=== PATIENT | male | born 1935 | race Caucasian/White ===

== ENCOUNTER 2017-07-21 13:52 | Emergency (ER) | payer OTHER, MEDICARE ==
[~2017-07-21] VITALS: Ht 175.3 cm; Wt 89.0 kg
[~2017-07-21 13:52] MED LIST: ACTOS30 MG PO; ADLT ASA LOW81 MG PO; CEPHALEXIN500 MG OR; DIOVAN HCT320 MG/25 PO; DIOVAN320 MG PO; FE GLUCONATE325 MG OR; FISH OIL600 MG OR; FOLIC ACID1 MG PO; GABAPENTIN100 MG PO; GLIPIZIDE5 MG PO; HYDROCHLORO25 MG/TAB PO; HYDROCHLOROT25 MG PO; HYDROCO/APAP1 TA9 PO; LOPRESSOR 550 MG/TAB PO; LORTAB5 PO; METOPROL TAR25 MG PO; METOPROL TAR50 MG PO; NORCO1 TA1 PO; NORVASC10 M1 PO; NORVASC5 MG PO; OMEPRAZOLE20 MG PO; PLOGLITAZONE PO; PYRIDOXINE HCL50 MG PO; SIMVASTATIN20 MG PO; SIMVASTATIN40 MG PO; TERAZOSIN1 MG PO; TET/DIP TOX1 ML IM
[2017-07-21 14:08] VITALS: BP 157/78
== END 2017-07-21 14:59 | disposition left against medical advice (07) | DRG 951 ==
LOC: ED 13:52 → LWOBS 14:58
DX: Z91.19 Patient's noncompliance with other medical treatment and regimen (principal)

== ENCOUNTER 2019-12-09 10:54 | Inpatient (IN) | payer OTHER, MEDICARE ==
[~2019-12-09] VITALS: Ht 175.3 cm; Wt 80.0 kg
--- NOTE | 2019-12-09 11:07 | NUR ---
PT TO ROOM [facility] WHEELCHAIR, SON AT SIDE
--- NOTE | 2019-12-09 11:31 | NUR ---
WHEN ASKED TO URINATE BEFORE BLADDER SCSAN, PT SCREAMED AT STAFF STATING I HAVENT PEED IN 4 DAYS, AND I AM NOT EVEN GOING TO TRY. WHEN I WALKED OUT OF DOOR AND CLOSED THE DOOR, PT STARTED YELLING I CANT HAVE THE DOOR CLOSED, I TOLD HIM WE NEEDED TO FOR HIPPA, HE YELLED, YOU ARENT GOING TO CLOSE THE DOOR OR I WILL GO CRAZY. CHARGE NURSE NOTIFIED.
--- NOTE | 2019-12-09 11:36 | NUR ---
PT STATING ONCE AGAIN HE DOESNT WANT A JAIME.
--- NOTE | 2019-12-09 11:53 | NUR ---
UNSUCCESSFUL ATTEMPT AT IV, CHARGE NURSE NOTIFIED.
[2019-12-09 12:11] LABS: HEMATOCRIT 35.3 % (39.0-50.0); HEMOGLOBIN 11.4 g/dl (14.0-18.0); IMMATURE GRANULOCYTES 0.5 % (0.0-5.0); MEAN CELL VOLUME 86.9 fL CALC (80.0-100.0); MEAN CORPUSCULAR HGB 28.1 pG CALC (26.0-32.0); MEAN CORPUSCULAR HGB CONC 32.3 g/dL CAL (32.0-36.0); NEUT# 14.55 thou/uL (1.82-7.42); RED BLOOD COUNT 4.06 mill/uL (4.70-6.10); RED CELL DISTRI WIDTH 18.5 % (11.5-15.5)
[2019-12-09 12:30] LABS: ALBUMIN 3.2 g/dL (3.2-5.0); TOTAL PROTEIN 6.7 g/dL (6.3-8.2)
[2019-12-09 12:39] LABS: BILIRUBIN, TOTAL 1.3 mg/dL (0.0-1.4); CREATININE 3.5 mg/dL (0.7-1.3); POTASSIUM 5.2 mmol/l (3.5-5.1)
--- NOTE | 2019-12-09 12:58 | NUR ---
PT RESTING ON STRETCHER, SON AT BEDSIDE. SON WANTS TO GO OUTSIDE TO SMOKE, ADVISED OF NEW RULES OF ONCE A VISITOR LEAVES THEY CAN NOT COME BACK IN
--- NOTE | 2019-12-09 14:06 | NUR ---
TRIED TO RECONCILE MED LIST BUT PT CAN ONLY REMEMBER A FEW, STATES [facility] AND HE GETS [facility] MEDS THRU THE MAIL
--- NOTE | 2019-12-09 14:38 | NUR ---
PT ARRIVED TO THE UNIT VIA STRETCHER TOOK 2 PEOPLE TO TRANSFER PT TO THE BED. PT INSISTING ON UNABLE TO WALK. OR URINATE. IV SITE IS FREE FROM REDNESS OR EDEMA. TELE MONTIOR IN PLACE
--- NOTE | 2019-12-09 14:53 | NUR ---
PT TAKEN TO MED SURG AFTER REPORT GIVEN TO MIYA, PER CLEAN SHEET AND MASK ON PT.
--- NOTE | 2019-12-09 14:59 | NUR ---
SPOKE WITH KENDRA CHESTER RE: MED REC. MEDS LISTED WERE REPORTED IN 2013, NO CLAIM HISTORY, NO RECORD OF FILLING AT PREFERRED PHARMACY. RECD PHARMACY CONSULT STATING PT COULD ONLY RECALL A FEW MEDS AND THAT [facility] HAS LIST. WORKING ON GETTING MED LIST FROM PHARMACY/FAMILY
[2019-12-09 15:00] VITALS: BP 128/64
--- NOTE | 2019-12-09 15:00 | NUR ---
PT ASSISTED TO BED WITH 2 PERSON. PER PT UNABLE TO WALK. ASSESSMENT IS COMPLETED: IV SITE IS FREE FROM REDNESS OR EDEMA. HR IS REG, PULSES ARE STRONG X4, ABD IS SOFT WITH ACTIVE BS. PACEMAKER IS NOTICEABLE. REDNESS NOTED ON LEFT LEG WITH WEEPING NOTED. SCROTUM IS SWOLLEN. UNABLE TO VOID. CONTINUE TO OSBERVE AND MONITOR.
--- NOTE | 2019-12-09 16:06 | NUR ---
EXHAUSTED OPTIONS FOR OBTAINING MEDICATION LIST. PT SON DOESN'T HAVE A LIST OF MEDS, IS UNABLE TO BRING IN RX BOTTLES, AND [facility] WON[facility] RELEASE PT INFORMATION. PER SON, PT'S PRIMARY DR IS DR JAMES MENDIETA IN [place]. KENDRA TAVERAS
--- NOTE | 2019-12-09 18:37 | NUR ---
LABS DRAWN FOR TESTING. PT TOLERATED WELL.
[2019-12-09 18:45] VITALS: BP 143/67
--- NOTE | 2019-12-09 20:30 | NUR ---
NOTRIFIED DR. BORRERO ABOUT PATIENT REQUEST PAIN MEDICATION STATEDPAIN ON BILAT LEGS WITH ORDERS MADE.
--- NOTE | 2019-12-09 20:32 | NUR ---
NO OUTPUT AT THIS TIME. LASIX GIVEN.
--- NOTE | 2019-12-09 21:20 | NUR ---
BLADDER SCAN DONE 179ML REPORTED TO DR. BORRERO THAT NOT VOIDED SINCE HE GOT UP ON FLOOR AND REFUSED FOLET INSERTION ERALIER, NO NEW ORDERS MADE AT HIS TIME.
[2019-12-09 23:56] VITALS: BP 150/64
[2019-12-10] VITALS (7 sets, daily range): BP systolic 141–158; BP diastolic 60–71
[2019-12-10 00:56] LABS: URINE BILIRUBIN - DIPSTICK NEGATIVE (NEGATIVE); URINE BLOOD DIPSTICK MODERATE (NEGATIVE); URINE COLOR YELLOW; URINE GLUCOSE - DIPSTICK NEGATIVE (NEGATIVE); URINE KETONE NEGATIVE (NEGATIVE); URINE NITRITE - DIPSTICK NEGATIVE (Negative); URINE PROTEIN - DIPSTICK 30 mg/dL (NEG-TRACE); URINE UROBILINOGEN - DIPSTICK 0.2 E.U./dL (0.2)
[2019-12-10 01:04] LABS: URINE LEUK ESTERASE NEGATIVE (NEGATIVE)
[2019-12-10 01:05] LABS: URINE EPITHELIAL CELLS FEW EPI/hpf (0-FEW); URINE RBC 25-50 RBC/hpf (0-5)
[2019-12-10 01:06] LABS: URINE BACTERIA MODERATE hpf
--- NOTE | 2019-12-10 02:13 | NUR ---
RECEIVED A PHONE CALL ED PATIENT VTACH 4MINS V/S TAKEN 151/63 TEMP 96.6 P 74 R 20 POX 94% ON OS @ 2LPM DENIES CHEST PAIN IS COMPLAINING OF PAIN ON BLE, STAT EKG ORDERED AT THIS TIME.
--- NOTE | 2019-12-10 02:28 | NUR ---
CALLED DR. BORRERO @ 2637 ABOUT ED CALLING ABOUT PATIENT HAVING 4MINS VTACH THEN BACK TO PACED, INFORMED ABOUT V/S BP 151/63 RESP 20 TEMP 96.6 HR 74 AND POX 94% ON 2LPM VIA NC SHALLOW UNLABORED RESPIRATION PATIENT DENYING CHEST PAIN, BUT WAS HAVING PAIN ON BLE, INFORMED THAT EKG WAS DONE ALSO, ORDERED TO CONTINUE MONITORING AND INCLUDE MAGNESIUM AND DO TROPONIN X 1 TO INCLUDE IN MORNING LAB.
[2019-12-10 04:52] LABS: HEMATOCRIT 35.4 % (39.0-50.0); HEMOGLOBIN 11.4 g/dl (14.0-18.0); IMMATURE GRANULOCYTES 0.3 % (0.0-5.0); MEAN CELL VOLUME 88.9 fL CALC (80.0-100.0); MEAN CORPUSCULAR HGB 28.6 pG CALC (26.0-32.0); MEAN CORPUSCULAR HGB CONC 32.2 g/dL CAL (32.0-36.0); NEUT# 10.08 thou/uL (1.82-7.42); RED BLOOD COUNT 3.98 mill/uL (4.70-6.10); RED CELL DISTRI WIDTH 18.6 % (11.5-15.5)
[2019-12-10 05:09] LABS: ALBUMIN 3.3 g/dL (3.2-5.0); BILIRUBIN, TOTAL 0.8 mg/dL (0.0-1.4); CREATININE 3.6 mg/dL (0.7-1.3); MAGNESIUM 1.9 mg/dL (1.6-2.3); POTASSIUM 4.5 mmol/l (3.5-5.1); TOTAL PROTEIN 6.7 g/dL (6.3-8.2)
--- NOTE | 2019-12-10 07:25 | NUR ---
REPORT RECEIVED FROM REJI GRIMES. PT SITTING UP ON EDGE OF BED; ALERT AND ORIENTED. C/O PAIN TO BLE. RESPIRATIONS EVEN AND UNLABORED ON ROOM AIR; SPO2 91%. PT HAS SOME COMPLAINTS ABOUT ROOM BEING COLD AND BREAKFAST COLD; BREAKFAST REPLACED AND ROOM WARMED. PLAN OF CARE REVIEWED. PT ENCOURAGED TO VERBALIZE CONCERNS. STATES UNDERSTANDING. SAFETY MEASURES IN PLACE. CALL LIGHT WITHIN REACH.
--- NOTE | 2019-12-10 09:22 | NUR ---
CALLED DR.LIQUETTE LAINEZ SPOKE TO JACIEL GAVE INFORMATION STATED SHE WILL GIVE THE DOCTOR THE CONSULTATION ON THIS PT.
--- NOTE | 2019-12-10 10:05 | NUR ---
PT SPILLED WATER ON BED; FULL LINEN CHANGE. PT EMOTIONAL AT THIS TIME STATING THAT HE FEELS USELESS AND SHOULD JUST . REASSURANCE PROIVIDED BY STAFF.
--- NOTE | 2019-12-10 10:16 | NUR ---
OXYGEN REAPPLIED 2L VIA NC. PT STATES THAT HIS SON WILL BE BRINGING A COPY OF HIS HOME MEDICATIONS IN TODAY.
--- NOTE | 2019-12-10 11:21 | NUR ---
DR. BAHENA AND MAHIN GARDNER AT BEDSIDE.
[2019-12-10] MEDS ORDERED: ELIQUIS5 MG PO (12:44)
[2019-12-10] MEDS ORDERED: ALLOPURINOL100 MG PO (12:44)
[2019-12-10] MEDS ORDERED: NORVASC5 M1 PO (12:44)
[2019-12-10] MEDS ORDERED: BUMEX1 M1 PO (12:45)
[2019-12-10] MEDS ORDERED: LIPITOR40 M1 PO (12:45)
--- NOTE | 2019-12-10 14:26 | NUR ---
TRAMADOL GIVEN FOR 8/10 BLE PAIN. CLEAN URINAL PROVIDED FOR URINE SPECIMEN; PT AWARE THAT WE NEED TO COLLECT HIS URINE.
--- NOTE | 2019-12-10 15:37 | NUR ---
REPORT RECEIVED FROM REJI DANG
--- NOTE | 2019-12-10 16:10 | NUR ---
PT RESTING IN SEMI FOWLERS POSITION;RESPIRATIONS EVEN AND UNLABORED ON O2 @ 2L VIA NC;PT DENIES ANY CURRENT PAIN OR NEEDS;TELE MONITORING IN PLACE;IV ABX INFUSING WITH EASE PER ORDER;PT ENCOURAGED TO CALL FOR ASSISTANCE IF NEEDED;CALL LIGHT IN REACH;WILL CONTINUE TO MONITOR
[2019-12-10] MEDS ORDERED: CARVEDILOL12.5 MG PO (17:54)
[2019-12-10] MEDS ORDERED: CLEOCIN150 M1 PO (17:55)
[2019-12-10] MEDS ORDERED: GLIPIZIDE5 M2 PO (17:56)
[2019-12-10] MEDS ORDERED: HYDRALAZINE10 MG PO (17:58)
[2019-12-10] MEDS ORDERED: ISOSORB MONO30 MG PO (17:59)
[2019-12-10] MEDS ORDERED: METOPROLOL100 M1 PO (18:00)
[2019-12-10] MEDS ORDERED: KEFLEX250 MG PO (18:00)
[2019-12-10] MEDS ORDERED: OMEPRAZOLE20 MG PO (18:01)
[2019-12-10] MEDS ORDERED: PRAZOSIN HCL2 M1 PO (18:02)
[2019-12-10] MEDS ORDERED: SILVER SULFADIAZI1 % EX (18:03)
[2019-12-10] MEDS ORDERED: ULTRAM50 M1 PO (18:05)
--- NOTE | 2019-12-10 19:00 | NUR ---
REPORT RECEIVED FROM PARTH SZYMANSKI. NO S/S OF DISTRESS AT THIS TIME. WILL CONTINUE TO MONITOR.
--- NOTE | 2019-12-10 21:18 | NUR ---
PT RESTING IN BED, ALERT AND ORIENTED. RESPIRATIONS EVEN AND UNLABORED, LUNGS SOUND DIMINISHED. PEDAL PULSES WEAK. PT REPORTS HAVING A BURNING FEELING IN LEFT LOWER EXTREMITY. PT MEDICATED FOR PAIN. SAFETY PRECAUTIONS IN PLACE. WILL CONTINUE TO MONITOR.
--- NOTE | 2019-12-11 01:00 | NUR ---
PT RESTING IN BED. NO S/S OF DISTRESS. TELE IN PLACE. CALL SIDDIQUI WITHIN REACH. WILL CONTINUE TO MONITOR.
--- NOTE | 2019-12-11 03:10 | NUR ---
PT RESTING IN BED. PT SPILLED HIS DRINK, ASSISTED PT TO CHANGE HIS GOWN. SAFETY PRECAUTIONS IN PLACE. WILL CONTINUE TO MONITOR.
[2019-12-11 05:16] VITALS: BP 137/71
[2019-12-11 06:20] LABS: HEMATOCRIT 37.4 % (39.0-50.0); HEMOGLOBIN 12.3 g/dl (14.0-18.0); MEAN CELL VOLUME 87.2 fL CALC (80.0-100.0); MEAN CORPUSCULAR HGB 28.7 pG CALC (26.0-32.0); MEAN CORPUSCULAR HGB CONC 32.9 g/dL CAL (32.0-36.0); RED BLOOD COUNT 4.29 mill/uL (4.70-6.10); RED CELL DISTRI WIDTH 18.8 % (11.5-15.5)
[2019-12-11 06:34] LABS: BILIRUBIN, TOTAL 0.7 mg/dL (0.0-1.4); CREATININE 3.3 mg/dL (0.7-1.3); TOTAL PROTEIN 6.3 g/dL (6.3-8.2)
--- NOTE | 2019-12-11 07:15 | NUR ---
REPORT RECEIVED FROM REJI HUMPHREY.
[2019-12-11 08:05] VITALS: BP 168/75
--- NOTE | 2019-12-11 08:25 | NUR ---
PT RESTING IN SEMI FOWLERS POSITION,A&O X3;VS OBTAINED AND ASSESSMENT COMPLETED;PT REPORTS LLE ANKLE PAIN AND REQUESTS PAIN MEDICATION,PT EDUCATED ON PAIN MEDICATION SCHEDULE AND VERBALIZES UNDERSTANDING;RESPIRATIONS EVEN AND UNLABORED ON O2 @ 2L VIA NC;ABDOMEN SOFT ON PALPATIONS AND ACTIVE IN ALL 4 QUADRANTS;WEAK PEDAL PULSES WITH EDMEA NOTED TO BLE,HEEL PROTECTORS IN PLACE AND FEET ELEVATED ON A PILLOW;TELE MONITORING IN PLACE;#22G STARTED TO RFA STARTED ON 2ND ATTEMPT BY THIS WRITTER AND PT TOLERATED WELL;ACCUCHECK 189, PT COVERED WITH SLIDING SCALE PER ORDER;PT DENIES ANY ADDITIONAL NEEDS AND IS ENCOURAGED TO CALL FOR ASSISTANCE IF NEEDED;FALL PRECAUTIONS IN PLACE WITH BED IN THE LOWEST POSITION AND CALL LIGHT IN REACH;WILL CONTINUE TO MONITOR
--- NOTE | 2019-12-11 10:39 | NUR ---
AT BEDSIDE DISCUSSING POC
[2019-12-11 10:54] VITALS: BP 153/54
--- NOTE | 2019-12-11 12:05 | NUR ---
PT RESTING AT BEDSIDE;RESPIRATIONS REMAIN EVEN AND UNLABORED ON O2 @ 2L VIA NC;PT REPORTS BLE PAIN RATING 5/10 ON THE PAIN SCALE,PT MEDICATED WITH PRN ULTRAM 50MG PO AT THIS TIME;IV SITE PATENT;TELE MONITORING IN PLACE;ACCUCHECK 216, PT COVERED WITH SLIDING SCALE NOVOLOG PER ORDER;PT DENIES ANY ADDITIONAL NEEDS AT THIS TIME AND IS ENCOURAGED TO CALL FOR ASSISTANCE IF NEEDED;FALL PRECAUTIONS IN PLACE WITH BED IN THE LOWEST POSITION AND CALL LIGHT IN REACH;WILL CONTINUE TO MONITOR
--- NOTE | 2019-12-11 15:10 | NUR ---
PT RESTING IN SEMI FOWLERS POSITION;RESPIRATIONS EVEN AND UNLABORED ON O2 @ 2L VIA NC;PT DENIES ANY CURRENT PAIN OR DISCOMFORTS;TELE MONITORING IN PLACE;IV SITE NOTED TO BE INFILTRATED WHILE STARTING IV ABX,SITE REMOVED WITH CATHETER INTACT AND NEW SITE TO BE STARTED;PT DENIES ANY ADDITIONAL NEEDS AT THIS TIME AND IS ENCOURAGED TO CALL FOR ASSISTANCE IF NEEDED;FALL PRECAUTIONS REMAIN IN PLACE WITH CALL LIGHT IN REACH;WILL CONTINUE TO MONITOR
[2019-12-11 15:15] VITALS: BP 141/59
[2019-12-11 18:52] VITALS: BP 140/65
--- NOTE | 2019-12-11 19:10 | NUR ---
REPORT RECEIVED FROM PARTH SZYMANSKI. PT RESTING IN BED, NO S/S OF DISRESS AT THIS TIME. WILL CONTINUE TO MONITOR.
--- NOTE | 2019-12-11 20:07 | NUR ---
RECEIVED CALL FROM KISHORE IN LAB. COVID RESULTS NOT DETECTED. REPORTED TO RN
--- NOTE | 2019-12-11 21:10 | NUR ---
PT MOVED FROM 289 TO 263, PT NEGATIVE FOR COVID-19 MOVED OUT OF ISOLATION.
--- NOTE | 2019-12-11 21:30 | NUR ---
PT RESTING IN BED ALERT AND ORIENTED. RESPIRATIONS EVEN AND UNLABORED ON O2 @ 2L VIA NC. LUNGS SOUND DIMINISHED. PEDAL PULSES WEAK. PT REPORTS HAVING A BURNING PAIN IN HIS LEFT ANKLE. PT MEDICATED PER EMAR ORDERS. SAFETY PRECAUTIONS IN PLACE. WILL CONTINUE TO MONITOR.
--- NOTE | 2019-12-12 00:10 | NUR ---
PT RESTING IN BED. NO S/S OF DISTRESS AT THIS TIME. WILL CONTINUE TO MONITOR.
[2019-12-12 00:49] VITALS: BP 135/66
[2019-12-12 04:14] VITALS: BP 146/67
[2019-12-12 08:38] VITALS: BP 168/72
--- NOTE | 2019-12-12 08:38 | NUR ---
PT SITTING IN BED. A&O X3. NO DISTRESS NOTED. EENCOURAGED PT TO KEEP LEG ELEVATED. PER PT HE WANTS TO LEAVE TODAY. EXPLAINED TO PT THAT WE WOULD NEEED FOR THE MD TO EVALUATE HIM AND PUT IN D\C ORDERS. PT SEEMED IMPATIENT BUT VERBALIZED UNDERSTANDING. NO OTHER NEEDS AT THIS TIME. CALL LIGHT IN REACH. CONTINUE TO MONITOR.
[2019-12-12 10:25] VITALS: BP 168/72
[2019-12-12] MEDS ORDERED: DOXYCYCL HYC100 MG PO (13:10)
[2019-12-12] MEDS ORDERED: METOLAZONE2.5 MG PO (13:10)
[2019-12-12] MEDS ORDERED: CARVEDILOL12.5 MG PO (13:10)
[2019-12-12] MEDS ORDERED: BUMEX1 M1 PO (13:10)
[2019-12-12] MEDS ORDERED: MEDDOSEPAK PO (13:13)
--- NOTE | 2019-12-12 13:38 | NUR ---
D/C INSTRUCTIONS GIVEN BY VAHE MENDOZA. IV INTACT UPON REMOVAL. PT D/C VIA HOME IN STABLE CONDITION.
--- NOTE | 2019-12-16 13:10 | NUR ---
Pneumonia discharge follow up call performed 12/15/19. Pt has not obtained meds prescribed upon discharge due to financial burden. Pharmacy notified of situation for possible resolution. Pt. also states his O2 is not being delivered to his home and the Home Health nurse who had been dressing his legs has not come since discharge. Pt. Has been unable to reach [facility] Garcia, his normal pharmacy provider. He has not reached his PCP for follow up appt despite multiple attempts to contact them. [facility] case management will investigate to see which Home Health and oxygen vendors were being utilized by patient and attempt to contact them. Encouraged patient to continue trying to contact PCP. Pt. states he is not experiencing any respiratory distress, fever, chills, or loss of appetite. He is experiencing pain in legs making it difficult to amulate more than a few steps. Patient would be most appreciative of any help we can offer.
--- NOTE | 2019-12-17 10:25 | NUR ---
Pneumonia discharge follow up call completed 12/16/19. Pt. states he has not obtained medication prescribed at discharge due to financial burden. He typically uses the [facility] pharmacy service and has been unable to reach them. Patient states he is not currently having any respiratory issues, but is experiencing signifficant pain in legs and is unable to ambulate more than a step or two. Also states "Someone has cancelled my O2" at home. He says he has multiple empty cylinders but no full tanks. He also says he has not seen or heard from the Home Health nurse who had been coming to change dressings on his legs. The patient cannot tell mewhich Home Health service was coming or who delivered his oxygen. Phamacy has been made aware of patient's medication issues and will work to resolve. Case Management has investigated and believes the oxygen and [facility] services [facility]. Called pt again today, 12/16, to update. He states he was called by his PCP and given some instruction. Feels better today. No further needs expressed at this time.
== END 2019-12-12 13:57 | disposition home health service (06) | DRG 291 ==
LOC: ED 10:54 → ED-I 13:10 → ED 13:23 → ED-I 13:24 → MS2 13:24
PROVIDERS: Family Medicine; Nurse Practitioner Family; ADMIT Internal Medicine; ATTEND Internal Medicine
DX: I13.0 Hypertensive heart and chronic kidney disease with heart failure and stage 1 through stage 4 chronic kidney disease, or unspecified chronic kidney disease (principal); J18.9 Pneumonia, unspecified organism; J44.0 Chronic obstructive pulmonary disease with (acute) lower respiratory infection; L03.116 Cellulitis of left lower limb; N18.4 Chronic kidney disease, stage 4 (severe); N17.9 Acute kidney failure, unspecified; N25.81 Secondary hyperparathyroidism of renal origin; E87.2 Acidosis; I48.20 Chronic atrial fibrillation, unspecified; I50.9 Heart failure, unspecified; E11.22 Type 2 diabetes mellitus with diabetic chronic kidney disease; E11.51 Type 2 diabetes mellitus with diabetic peripheral angiopathy without gangrene; I25.10 Atherosclerotic heart disease of native coronary artery without angina pectoris; D63.1 Anemia in chronic kidney disease; M10.30 Gout due to renal impairment, unspecified site; Z79.84 Long term (current) use of oral hypoglycemic drugs; Z95.1 Presence of aortocoronary bypass graft; Z79.01 Long term (current) use of anticoagulants; Z20.828 Contact with and (suspected) exposure to other viral communicable diseases
CPT/HCPCS: G0378

== ENCOUNTER 2019-12-27 | Emergency (ER) | payer OTHER ==
[~2019-12-27] MED LIST changes: +ALLOPURINOL100 MG PO; +BUMEX1 M1 PO; +CARVEDILOL12.5 MG PO; +CLEOCIN150 M1 PO; +DOXYCYCL HYC100 MG PO; +ELIQUIS5 MG PO; +GLIPIZIDE5 M2 PO; +HYDRALAZINE10 MG PO; +ISOSORB MONO30 MG PO; +KEFLEX250 MG PO; +LIPITOR40 M1 PO; +MEDDOSEPAK PO; +METOLAZONE2.5 MG PO; +METOPROLOL100 M1 PO; +NORVASC5 M1 PO; +PRAZOSIN HCL2 M1 PO; +SILVER SULFADIAZI1 % EX; +ULTRAM50 M1 PO
[2019-12-27 12:53] LABS: ALBUMIN 3.6 g/dL (3.2-5.0); CREATININE 2.8 mg/dL (0.7-1.3); POTASSIUM 4.8 mmol/l (3.5-5.1); TOTAL PROTEIN 6.8 g/dL (6.3-8.2)
[2019-12-27 12:55] LABS: BILIRUBIN, TOTAL 1.1 mg/dL (0.0-1.4)
[2019-12-27 13:14] LABS: HEMATOCRIT 41.1 % (39.0-50.0); HEMOGLOBIN 12.9 g/dl (14.0-18.0); IMMATURE GRANULOCYTES 0.6 % (0.0-5.0); MEAN CORPUSCULAR HGB 29.2 pG CALC (26.0-32.0); MEAN CORPUSCULAR HGB CONC 31.4 g/dL CAL (32.0-36.0); NEUT# 5.73 thou/uL (1.82-7.42); RED BLOOD COUNT 4.42 mill/uL (4.70-6.10); RED CELL DISTRI WIDTH 19.1 % (11.5-15.5)
[2019-12-27 17:42] LABS: URINE BILIRUBIN - DIPSTICK NEGATIVE (NEGATIVE); URINE BLOOD DIPSTICK NEGATIVE (NEGATIVE); URINE COLOR YELLOW; URINE GLUCOSE - DIPSTICK NEGATIVE (NEGATIVE); URINE KETONE NEGATIVE (NEGATIVE); URINE LEUK ESTERASE NEGATIVE (NEGATIVE); URINE NITRITE - DIPSTICK NEGATIVE (Negative); URINE PH 5.5 (4.5-8.0); URINE PROTEIN - DIPSTICK TRACE mg/dL (NEG-TRACE); URINE SPECIFIC GRAVITY 1.015; URINE UROBILINOGEN - DIPSTICK 0.2 E.U./dL (0.2)
--- NOTE | 2019-12-30 09:00 | NUR ---
Spoke with Hannah at [facility]. Faxed Covid results to [phone].
== END 2019-12-27 18:00 | DRG 392 ==
PROVIDERS: Family Medicine
DX: R13.10 Dysphagia, unspecified (principal); L03.116 Cellulitis of left lower limb; I11.0 Hypertensive heart disease with heart failure; I50.9 Heart failure, unspecified; E11.9 Type 2 diabetes mellitus without complications; Z86.73 Personal history of transient ischemic attack (TIA), and cerebral infarction without residual deficits; Z79.84 Long term (current) use of oral hypoglycemic drugs; Z20.828 Contact with and (suspected) exposure to other viral communicable diseases

== ENCOUNTER 2020-02-16 13:19 | Inpatient (IN) | payer OTHER, MEDICARE ==
[~2020-02-16] VITALS: Ht 175.3 cm; Wt 68.0 kg
[2020-02-16 14:57] LABS: HEMATOCRIT 35.9 % (39.0-50.0); HEMOGLOBIN 11.3 g/dl (14.0-18.0); IMMATURE GRANULOCYTES 0.5 % (0.0-5.0); MEAN CELL VOLUME 88.6 fL CALC (80.0-100.0); MEAN CORPUSCULAR HGB 27.9 pG CALC (26.0-32.0); MEAN CORPUSCULAR HGB CONC 31.5 g/dL CAL (32.0-36.0); NEUT# 7.68 thou/uL (1.82-7.42); RED BLOOD COUNT 4.05 mill/uL (4.70-6.10); RED CELL DISTRI WIDTH 15.9 % (11.5-15.5)
[2020-02-16 15:16] LABS: ALBUMIN 3.2 g/dL (3.2-5.0); BILIRUBIN, TOTAL 1.1 mg/dL (0.0-1.4); CREATININE 2.4 mg/dL (0.7-1.3); TOTAL PROTEIN 6.6 g/dL (6.3-8.2)
[2020-02-16 18:15] VITALS: BP 154/77
[2020-02-16 18:27] VITALS: BP 168/81
[2020-02-16 18:53] LABS: URINE BILIRUBIN - DIPSTICK NEGATIVE (NEGATIVE); URINE BLOOD DIPSTICK NEGATIVE (NEGATIVE); URINE COLOR YELLOW; URINE GLUCOSE - DIPSTICK NEGATIVE (NEGATIVE); URINE KETONE NEGATIVE (NEGATIVE); URINE LEUK ESTERASE NEGATIVE (NEGATIVE); URINE NITRITE - DIPSTICK NEGATIVE (Negative); URINE PH 5.5 (4.5-8.0); URINE PROTEIN - DIPSTICK 30 mg/dL (NEG-TRACE); URINE UROBILINOGEN - DIPSTICK 0.2 E.U./dL (0.2)
[2020-02-16 18:57] LABS: URINE RBC 0-2 RBC/hpf (0-5); URINE WBC 0-2 WBC/hpf (0-5)
[2020-02-16 23:50] VITALS: BP 126/71
[2020-02-17] VITALS (28 sets, daily range): BP systolic 75–163; BP diastolic 46–88
[2020-02-17 06:20] LABS: CREATININE 2.3 mg/dL (0.7-1.3); POTASSIUM 4.7 mmol/l (3.5-5.1)
[2020-02-17 11:28] LABS: HEMATOCRIT 37.6 % (39.0-50.0); HEMOGLOBIN 11.6 g/dl (14.0-18.0); IMMATURE GRANULOCYTES 0.5 % (0.0-5.0); MEAN CELL VOLUME 90.2 fL CALC (80.0-100.0); MEAN CORPUSCULAR HGB 27.8 pG CALC (26.0-32.0); MEAN CORPUSCULAR HGB CONC 30.9 g/dL CAL (32.0-36.0); NEUT# 6.91 thou/uL (1.82-7.42); RED BLOOD COUNT 4.17 mill/uL (4.70-6.10); RED CELL DISTRI WIDTH 15.9 % (11.5-15.5)
[2020-02-18] VITALS (25 sets, daily range): BP systolic 71–150; BP diastolic 41–99
[2020-02-18 05:33] LABS: HEMATOCRIT 39.5 % (39.0-50.0); HEMOGLOBIN 12.4 g/dl (14.0-18.0); MEAN CELL VOLUME 90.2 fL CALC (80.0-100.0); MEAN CORPUSCULAR HGB 28.3 pG CALC (26.0-32.0); MEAN CORPUSCULAR HGB CONC 31.4 g/dL CAL (32.0-36.0); RED BLOOD COUNT 4.38 mill/uL (4.70-6.10)
[2020-02-18 05:46] LABS: CREATININE 2.7 mg/dL (0.7-1.3); POTASSIUM 4.9 mmol/l (3.5-5.1)
== END 2020-02-18 12:50 | disposition short-term general hospital (02) | DRG 871 ==
LOC: ED 13:19 → ED-I 17:00 → ED 17:11 → ED-I 17:12 → MS2 17:12 → ICU 17:12 → MS2 17:31 → ICU 02-17 06:55
PROVIDERS: ADMIT Internal Medicine; ATTEND Internal Medicine
PROC: 02HV33Z Insertion of Infusion Device into Superior Vena Cava, Percutaneous Approach (ICD-10-PCS; principal; 2020-02-17)
PROC: 0BH17EZ Insertion of Endotracheal Airway into Trachea, Via Natural or Artificial Opening (ICD-10-PCS; 2020-02-18)
PROC: 5A1935Z Respiratory Ventilation, Less than 24 Consecutive Hours (ICD-10-PCS; 2020-02-18)
PROC: 0T9B70Z Drainage of Bladder with Drainage Device, Via Natural or Artificial Opening (ICD-10-PCS; 2020-02-18)
DX: A41.9 Sepsis, unspecified organism (principal); R65.21 Severe sepsis with septic shock; L03.116 Cellulitis of left lower limb; I13.0 Hypertensive heart and chronic kidney disease with heart failure and stage 1 through stage 4 chronic kidney disease, or unspecified chronic kidney disease; L97.828 Non-pressure chronic ulcer of other part of left lower leg with other specified severity; N17.9 Acute kidney failure, unspecified; L03.115 Cellulitis of right lower limb; I50.9 Heart failure, unspecified; E11.22 Type 2 diabetes mellitus with diabetic chronic kidney disease; N18.9 Chronic kidney disease, unspecified; I95.9 Hypotension, unspecified; D64.9 Anemia, unspecified; I25.10 Atherosclerotic heart disease of native coronary artery without angina pectoris; J44.9 Chronic obstructive pulmonary disease, unspecified; E11.51 Type 2 diabetes mellitus with diabetic peripheral angiopathy without gangrene; Z87.891 Personal history of nicotine dependence; Z95.1 Presence of aortocoronary bypass graft; Z95.0 Presence of cardiac pacemaker; Z20.828 Contact with and (suspected) exposure to other viral communicable diseases
CPT/HCPCS: J0692; J1650; J3370; Q3014